=== PATIENT | male | born 1945 | race Caucasian/White ===

== ENCOUNTER 2016-12-02 07:46 | Day surgery (SDC) | payer MEDICARE ==
--- NOTE | ~2016-12-02 | EGD ---
EGD REPORT [facility] [address] [place] [address] NAME: NANCY TROTTER : [birth year] STATUS : REG [facility]#: [id number] AGE: 71 ADM/REG DATE : 12/02/16 MR#: [id number] REPORT SERV DATE: 12/02/16 DICTATED BY: DANIEL SILVERMAN DATE: 12/02/16 REPORT STATUS : Draft TRANSCRIBED BY: [facility] DATE: 12/02/16 Endoscopy Center Patient Name: Nancy Trotter Date of : 1945 Attending MD: DANIEL SILVERMAN MD Procedure Date No Time: 12/02/2016 Procedure: Colonoscopy Indications: High risk colon cancer surveillance: Personal history of colonic polyps Referring MD: ROCIO ELAINE MD Medicines: as per anesthesia Complications: No immediate complications. Procedure: Pre-Anesthesia Assessment: - ASA Grade Assessment: II - A patient with mild systemic disease. After I obtained informed consent, the scope was passed under direct vision. Throughout the procedure, the patient's blood pressure, pulse, and oxygen saturations were monitored continuously. The PCF [id number] was introduced through the anus and advanced to the cecum, identified by appendiceal orifice and ileocecal valve. The colonoscopy was performed without difficulty. The patient tolerated the procedure. The quality of the bowel preparation was fair. Findings: The perianal and digital rectal examinations were normal. A few small and large-mouthed diverticula were found in the sigmoid colon. Internal hemorrhoids were found during endoscopy and were mild. Impression: - Diverticulosis in the sigmoid colon. - Internal hemorrhoids. Recommendation: - Repeat colonoscopy in 3 years for surveillance. Procedure Code(s): --- Professional --- 18493, Colonoscopy, flexible, proximal to splenic flexure; diagnostic, with or without collection of specimen(s) by brushing or washing, with or without colon decompression (separate procedure) Diagnosis Code(s): --- Professional --- K64.8, Other hemorrhoids K57.30, Diverticulosis of large intestine without EGD REPORT [address] [facility] [place] [address] NAME: NANCY TROTTER : [birth year] STATUS : REG [facility]#: [id number] AGE: 71 ADM/REG DATE : 12/02/16 MR#: [id number] REPORT SERV DATE: 12/02/16 DICTATED BY: DANIEL SILVERMAN. DATE: 12/02/16 REPORT STATUS : Draft TRANSCRIBED BY: [employer] DATE: 12/02/16 perforation or abscess without bleeding Z86.010, Personal history of colonic polyps CPT copyright 2013 [employer]. All rights reserved. The codes documented in this report are preliminary and upon certified procedural coder review may be revised to meet current compliance requirements. DANIEL SILVERMAN MD 12/02/2016 9:57 AM This report has been signed electronically. Number of Addenda: 0 Note Initiated On: 12/02/2016 9:24 AM Scope Withdrawal Time 0 hours 8 minutes [address] [place], [place] [address] [id number]
[~2016-12-02 07:46] MED LIST: ACET500CAP PO; COREG25 PO; COZAAR100 MG PO; MOBIC7.5 PO; NORV10 PO; PRILO PO
== END 2016-12-02 23:59 | disposition home or self-care (01) ==
LOC: DMU 07:46
PROVIDERS: Internal Medicine Gastroenterology
PROC: 0DJD8ZZ Inspection of Lower Intestinal Tract, Via Natural or Artificial Opening Endoscopic (ICD-10-PCS; principal; 2016-12-02 09:00)
DX: Z12.11 Encounter for screening for malignant neoplasm of colon (principal); Z86.010 Personal history of colon polyps; K57.30 Diverticulosis of large intestine without perforation or abscess without bleeding; K64.8 Other hemorrhoids; K21.9 Gastro-esophageal reflux disease without esophagitis; I10 Essential (primary) hypertension; E66.9 Obesity, unspecified; G47.33 Obstructive sleep apnea (adult) (pediatric); Z88.0 Allergy status to penicillin; Z88.2 Allergy status to sulfonamides; Z79.1 Long term (current) use of non-steroidal anti-inflammatories (NSAID); Z79.899 Other long term (current) drug therapy